=== PATIENT | male | born 1965 | race Caucasian/White ===

== ENCOUNTER 2022-03-04 10:33 | Emergency (ER) | payer OTHER, SELFPAY ==
[2022-03-04 10:50] VITALS: BP 112/72; PULSE 84; RESP 18; TEMP 37.2; O2SAT 98
--- NOTE | 2022-03-04 11:03 | ED.URI ---
HPI - URI/Sore Throat General Chief Complaint: Upper Respiratory Infection Stated Complaint: nasal congestion,cough Time Seen by Provider: 03/04/22 11:03 Source: patient Mode of arrival: ambulatory Limitations: no limitations History of Present Illness HPI Narrative: James Godoy is a 56-year-old male with a [employer] of aortic nerve root aneurysm, seasonal allergies, glaucoma, who comes with upper respiratory infection for x3 days being a sore throat and this morning had a fever of 100.5 he states he feels like he is getting worse and NyQuil is helping him sleep through the night till last night Related Data Home Medications Medication Instructions Recorded Confirmed fexofenadine [Hafsa] 180 mg PO DAILY 03/04/22 03/04/22 fluticasone propionate [Flonase] 1 spray INTRANASAL DAILY 03/04/22 03/04/22 latanoprost 1 drp DIRECTED 03/04/22 03/04/22 montelukast [Singulair] 10 mg PO DAILY 03/04/22 03/04/22 timolol maleate [Timoptic] 1 drp DIRECTED 03/04/22 03/04/22 Allergies Allergy/AdvReac Type Severity Reaction Status Date / Time No Known Allergies Allergy Verified 03/04/22 10:57 Review of Systems Review of Systems: CONSTITUTIONAL: Has low-grade fever, chills, sweats. EYES: Denies visual changes, redness, discharge. ENT: Denies rhinorrhea, has congestion, has sore throat, otalgia. CARDIOVASCULAR: Denies chest pain, palpitations, edema. RESPIRATORY: Denies dyspnea, wheezing, has cough GASTROINTESTINAL: Denies abdominal pain, nausea, vomiting, diarrhea. GENITOURINARY: Denies dysuria, hematuria, abnormal discharge SKIN: Denies rash or itching. NEUROLOGIC: Denies numbness, or focal weakness. PSYCHIATRIC: Denies anxiety or depression. [facility] Past Medical History Medical History Aortic aneurysm Glaucoma Seasonal allergies Social History Social History (Updated 03/04/22 @ 11:11 by Debo Toth CNP) Smoking status: Never smoker Alcohol intake: current Comments At time of signature, I agree with nursing past medical, surgical, social and family history. There is no relevant family history pertinent to the presenting complaint. Exam Narrative: GENERAL: This is a well-nourished, well-developed patient, in mild distress. HEAD: normocephalic, atraumatic. EYES: Sclera clear/white. Vision is grossly intact. EARS: External ears normal, Hearing grossly intact. NOSE: External nose normal with nasal discharge, nares with redness, has rhinorrhea. THROAT: Mucous membranes moist, posterior pharynx erythema NECK: Neck supple, non-tender CARDIOVASCULAR: Regular rate and rhythm without murmurs, gallops, or rubs. RESPIRATORY: Clear to auscultation. Breath sounds equal bilaterally. No wheezes, rales, or rhonchi. GASTROINTESTINAL: Abdomen soft, SKIN: warm, intact with no suspicious lesions or rash, good texture and turgor. NEURO: awake, alert, and oriented to person, place and time. There were no obvious focal neurologic abnormalities. Steady gait EXTREMITIES: Normal range of motion. BACK: Nontender without deformity Course Course Emergency Course: Sore throat x3 days with increasing upper respiratory symptoms and cough Flu negative, COVID negative, strep negative Started on steroids Zithromax and cough medicine Follow-up with PCP Level of Care: Express Care Visit Vital Signs Vital signs: Vital Signs Temperature 98.9 F 03/04/22 10:50 Pulse Rate 84 03/04/22 10:50 Respiratory Rate 18 03/04/22 10:50 Blood Pressure 112/72 03/04/22 10:50 Pulse Oximetry 98 03/04/22 10:50 Temperature 98.9 F 03/04/22 10:50 Pulse Rate 84 03/04/22 10:50 Respiratory Rate 18 03/04/22 10:50 Blood Pressure 112/72 03/04/22 10:50 Pulse Oximetry 98 03/04/22 10:50 MDM - URI/Sore Throat Differential Diagnosis Differential diagnosis: Likely upper respiratory infection, viral infection, bronchitis, pharyngitis and other Lab Data Labs: Lab Results
== END 2022-03-04 11:19 | disposition home or self-care (01) ==
PROVIDERS: Emergency Provider Nurse Practitioner; PCP Family Medicine
DX: J40 Bronchitis, not specified as acute or chronic (principal); Z20.822 Contact with and (suspected) exposure to COVID-19
CPT/HCPCS: 87081; 87426; 87804; 87880; 99203; C9803; G0463